=== PATIENT | male | born 1980 | race Caucasian/White ===

== ENCOUNTER 2021-01-19 17:31 | Emergency (ER) | payer MEDICAID ==
[~2021-01-19] VITALS: Ht 167.6 cm; Wt 82.0 kg
[2021-01-19] MEDS ORDERED: NAPR-681 MT (17:55)
[2021-01-19] MEDS ORDERED: KETOROLAC 60MG/2ML VIAL IM ONE (18:00)
[2021-01-19 18:52] VITALS: BP 117/86
== END 2021-01-19 19:31 | disposition home or self-care (01) ==
LOC: ER 17:31
DX: M25.572 Pain in left ankle and joints of left foot (principal)
CPT/HCPCS: 29515; 73610; 96372; 99283; J1885